=== PATIENT | female | born 2000 | race African-American/Black ===

== ENCOUNTER 2018-08-06 13:07 | Inpatient (IN) ==
[2018-08-06] MEDS ORDERED: Acetaminophen 325 MG Tablet PO PRN (18:14)
[2018-08-06] MEDS: Sod Chloride 0.9% Inj 1,000 ML IV.CONT SCH (22:42)
[2018-08-06] MEDS: Clindamycin 900 mg/NS Premix 900 MG/50 ML PIGGYBACK IV.SIG SCH (22:43)
--- NOTE | 2018-08-06 22:59 | P.HPIM ---
[facility]: No Primary Care Physician Chief Complaint: Sore throat with difficulty swallowing and with drooling History of Present Illness: Ms. Silver is a pleasant 18-year-old female with no significant medical history who presented to the emergency room and [place] complaining of sore throat, dysphasia, and drooling accompanied by fevers for 5 days. [facility] for Z-Derik earlier in the week but stated this did not help her symptoms. As her symptoms progressively worsened and she started having problems swallowing she came to the emergency room. A CT of the neck showed findings consistent with a 1.8 cm left parapharyngeal abscess and she was transferred to [facility] for further evaluation and ENT consultation. At the time of my visit, the patient is feeling better after receiving 2 doses of IV antibiotics and 2 doses of IV steroids. She was sleeping when I entered the room and was easily awakened. She is pleasant and cooperative. She denies any family sick contacts. Tmax 103. . Review of Systems All other systems reviewed negative except as stated in HPI PMFSH - History History Provided By: Patient - Medical History Medical History: Medical History (Last Reviewed 08/07/18 @ 03:13 by JONATHAN Cantu) Patient denies medical problems - Surgical History Surgical History: Surgical History (Last Reviewed 08/07/18 @ 03:13 by JONATHAN Cantu) No history of previous surgery - Family History Family History: Family History (Last Updated 08/07/18 @ 03:09 by JONATHAN Cantu) Mother Prediabetes Mother Asthma - Social History I have reviewed the patient's Social History: Yes - Tobacco History Second Hand Smoke Exposure: No Smoking Status: Never smoker - Alcohol History How Often Do You Have a Drink Containing Alcohol: Never - Substance Use History Substance History: No History of Abuse - Travel History Recent Travel in the [place] Within the Last 8 Weeks: No Recent Travel Out of the Country Within the Last 8 Weeks: No Medications and Allergies Active Medications: Active Medications Acetaminophen (Tylenol) 650 mg PO Q4H PRN PRN Reason: Temp > 100.4 Al Hydroxide/Mg Hydroxide (Milk Of Magnesia Liq) 30 ml PO Q12H PRN PRN Reason: Mild Constipation Dexamethasone Sodium Phosphate (Decadron Inj) 4 mg IV.PUSH Q6HR [facility] Clindamycin/Sodium Chloride (Cleocin 900 Mg/Ns Premix) 900 mg in 50 mls @ 100 mls/hr IV.SIG Q8H [facility] Last Admin: 08/06/18 22:43 Dose: 100 mls/hr Sodium Chloride (Ns Inj) 1,000 mls @ 100 mls/hr IV.CONT .Q10H [facility] Last Admin: 08/06/18 22:42 Dose: 100 mls/hr Ondansetron HCl (Zofran Inj) 4 mg IV.PUSH Q6H PRN PRN Reason: NAUSEA OR VOMITING Allergies Allergy/AdvReac Type Severity Reaction Status Date / Time No Known Allergies Allergy Verified 08/06/18 14:12 Home Medications Medication Instructions Recorded Confirmed Type No Known Home Medications 08/06/18 08/06/18 History Exam Vital signs: Intake & Output 08/06/18 08/06/18 08/07/18 06:59 18:59 06:59 Weight 52.5 kg Other: Weight On Admission 52.5 kg Narrative: GENERAL: This is a well-nourished, well-developed patient, in no apparent distress. SKIN: No rashes, ecchymoses or lesions. Cool and dry. HEAD: Atraumatic. Normocephalic. EYES: No scleral icterus. No injection or drainage. ENT: Airway patent, bilateral tonsillar erythema, mild edema, and exudate. NECK: Trachea midline. No JVD. +mobile & freely moving anterior cervical lymphadenopathy. CARDIOVASCULAR: Regular rate and rhythm without murmurs, gallops, or rubs. RESPIRATORY: Clear to auscultation. Breath sounds equal bilaterally. No wheezes , rales, or rhonchi. GASTROINTESTINAL: Abdomen soft, non-tender, nondistended. No guarding. MUSCULOSKELETAL: Extremities without clubbing, cyanosis, or edema. No calf tenderness. NEUROLOGICAL: Awake and alert. Motor and sensory grossly within normal limits. Normal speech. . Caprini VTE Risk Assessment Caprini VTE Risk Assessment: No/Low Risk (score <= 1) Caprini Risk Assessment Model: Point Value = 1 Point Value = 2 Point Value = 3 Point Value = 5 Age 41-60 Minor surgery BMI > 25 kg/m2 Swollen legs Varicose veins or History of unexplained or recurrent spontaneous Oral contraceptives or hormone replacement Sepsis (< 1 month) Serious lung disease, including pneumonia (< 1 month) Abnormal pulmonary function Acute myocardial infarction Congestive heart failure (< 1 month) History of inflammatory bowel disease Medical patient at bed rest Age 61-74 Arthroscopic surgery Major open surgery (> 45 min) Laparoscopic surgery (> 45 min) Malignancy Confined to bed (> 72 hours) Immobilizing plaster cast Central venous access Age >= 75 History of VTE Family history of VTE Factor V Leiden Prothrombin [id number] Lupus anticoagulant Anticardiolipin antibodies Elevated serum homocysteine Heparin-induced thrombocytopenia Other congenital or acquired thrombophilia Stroke (< 1 month) Elective arthroplasty Hip, pelvis, or leg fracture Acute spinal cord injury (< 1 month) Prophylaxis Regimen: Total Risk Factor Score Risk Level Prophylaxis Regimen 0-1 Low Early ambulation 2 Moderate Order ONE of the following: *Sequential Compression Device (SCD) *Heparin 5000 units SQ BID 3-4 Higher Order ONE of the following medications: *Heparin 5000 units SQ TID *Enoxaparin/Lovenox 40 mg SQ daily (WT < 150 kg, CrCl > 30 mL/min) *Enoxaparin/Lovenox 30 mg SQ daily (WT < 150 kg, CrCl > 10-29 mL/min) *Enoxaparin/Lovenox 30 mg SQ BID (WT < 150 kg, CrCl > 30 mL/min) AND/OR *Sequential Compression Device (SCD) 5 or more Highest Order ONE of the following medications: *Heparin 5000 units SQ TID (Preferred with Epidurals) *Enoxaparin/Lovenox 40 mg SQ daily (WT < 150 kg, CrCl > 30 mL/min) *Enoxaparin/Lovenox 30 mg SQ daily (WT < 150 kg, CrCl > 10-29 mL/min) *Enoxaparin/Lovenox 30 mg SQ BID (WT < 150 kg, CrCl > 30 mL/min) AND *Sequential Compression Device (SCD) Assessment and Plan - Plan Ms. Silver is a pleasant 18-year-old female with no significant medical history who presented to the emergency room and [place] complaining of sore throat, dysphasia, and drooling accompanied by fevers for [address] of the neck showed findings consistent with a 1.8 cm left parapharyngeal abscess and she was transferred to [facility] for further evaluation and ENT consultation. Left parapharyngeal abscess -Antibiotics: Clindamycin 900 mg IV every 8 hours -Anti-inflammatory: Dexamethasone 4 mg IV every 6 hours -Consult ENT -appreciate assistance -Tylenol as needed for fever -Liquid diet Anemia -Hemoglobin 8.5 and hematocrit 29.6 -Iron profile -Repeat in a.m. and follow results DVT prophylaxis -Early ambulation Discussed Condition With: Dr. Clemente, patient, patient's mother, and RN H&P: Quality - VTE Deep Vein Thrombosis/Pulmonary Embolism Present on Admission: No
[2018-08-07 00:19] VITALS: O2SAT 99
[2018-08-07] MEDS: Clindamycin 900 mg/NS Premix 900 MG/50 ML PIGGYBACK IV.SIG SCH ×2 (03:15→09:49)
[2018-08-07 05:34] VITALS: RESP 16
[2018-08-07 09:11] LABS: White Blood Count 11.2 th/mm3 (4.0-11.0)
[2018-08-07 09:12] LABS: Baso % (Auto) 0.2 % (0.0-2.0); Hematocrit 26.3 % (35.0-46.0); Hemoglobin 8.1 gm/dL (11.6-15.3); Lymph # (Auto) 1.6 th/mm3 (1.0-4.8); Lymph % (Auto) 14.4 % (9.0-44.0); Mean Corpuscular HGB Conc 30.7 % (32.0-36.0); Mean Corpuscular Hemoglobin 19.6 pg (27.0-34.0); Mean Corpuscular Volume 63.9 fL (80.0-100.0); Mean Platelet Volume 9.2 fL (7.0-11.0); Mono # (Auto) 0.3 th/mm3 (0.0-0.9); Mono % (Auto) 2.6 % (0.0-8.0); Neut # (Auto) 9.2 th/mm3 (1.8-7.7); Neut % (Auto) 82.8 % (16.0-70.0); Platelet Count 289 th/mm3 (150-450); Red Blood Count 4.12 mil/mm3 (4.00-5.30); Red Cell Distribution Width 21.7 % (11.6-17.2)
[2018-08-07] MEDS: Sod Chloride 0.9% Inj 1,000 ML IV.CONT SCH ×2 (09:16→09:17)
[2018-08-07 09:32] LABS: Anion Gap 10 meq/L (5-15); Aspartate Aminotransferase 14 U/L (16-38); Blood Urea Nitrogen 13 mg/dL (7-18); Calcium 8.7 mg/dL (8.5-10.1); Carbon Dioxide 22.9 meq/L (21.0-32.0); Chloride 108 meq/L (98-107); Glomerular Filtration Rate Greater Than 89 mL/min (>89); Glucose,Random 116 mg/dL (74-106); Potassium 4.1 meq/L (3.5-5.1); Sodium 141 meq/L (136-145)
[2018-08-07 09:33] LABS: Alanine Aminotransferase 12 U/L (9-42)
[2018-08-07 09:35] LABS: % Iron Saturation 4.7 % (20-50); Alkaline Phosphatase 67 U/L (45-117)
--- NOTE | 2018-08-07 10:24 | P.PNIM ---
Subjective Interval history: throat pain has improved, she is able to swallow liquids. Physical Exam Vital signs: Last Vital Signs Temp 98.8 F 08/07/18 08:00 Pulse 65 08/07/18 08:00 Resp 16 08/07/18 08:00 BP 112/73 08/07/18 08:00 Pulse Ox 99 08/07/18 08:00 Intake & Output 08/05/18 08/06/18 08/07/18 08/08/18 06:59 06:59 06:59 06:59 Intake Total 100 / 100 1000 / 1000 Balance 100 / 100 1000 / 1000 Weight 52 kg Narrative: Focused exam: GENERAL: young lady in no acute distress. HEENT:not pale,anicteric,bilateral tonsil swelling 2/4 with erythema no discharge. Results Labs CBC & Chem 7: 08/07/18 07:57 08/07/18 07:57 Assessment and Plan Plan 18 yo F presented with tonsil pain found to have a para pharyngeal abscess. She is on IV Clindamycin and steroids and is responding appropriately. ENT cleared for discharge on oral Clinda and tapering steroid. Progress Note: Quality VTE Deep Vein Thrombosis/Pulmonary Embolism Present on Admission: No
[2018-08-07 11:38] VITALS: BP 108/67; PULSE 75; TEMP 98.7
--- NOTE | 2018-08-07 12:01 | P.CON ---
History of Present Illness Service: ENT Consult date: 08/07/18 Reason for Consult: Peritonsillar abscess Primary Care Provider: No Primary Care Physician Chief Complaint: Sore throat with difficulty swallowing and with drooling History of Present Illness: 18 year old female with several days sore throat. Developed tonsillitis and early abscess, despite Zpack. Treated with Decadron and Clindamycin. Feels much better overnight with edema resolved. Review of Systems Ears, Nose, Mouth, and Throat: Reports difficulty swallowing (resolved), Reports pain with swallowing (resolved), Denies bad breath, Denies change in voice PMFSH - History History Provided By: Patient - Medical History Medical History: Medical History (Last Reviewed 08/07/18 @ 03:13 by JONATHAN Cantu) Patient denies medical problems - Surgical History Surgical History: Surgical History (Last Reviewed 08/07/18 @ 03:13 by JONATHAN Cantu) No history of previous surgery - Family History Family History: Family History (Last Updated 08/07/18 @ 03:09 by JONATHAN Catnu) Mother Prediabetes Mother Asthma - Tobacco History Second Hand Smoke Exposure: No Smoking Status: Never smoker - Alcohol History How Often Do You Have a Drink Containing Alcohol: Never - Substance Use History Substance History: No History of Abuse - Travel History Recent Travel in the [place] Within the Last 8 Weeks: No Recent Travel Out of the Country Within the Last 8 Weeks: No Medications and Allergies Active Medications: Active Medications Acetaminophen (Tylenol) 650 mg PO Q4H PRN PRN Reason: Temp > 100.4 Al Hydroxide/Mg Hydroxide (Milk Of Magnesia Liq) 30 ml PO Q12H PRN PRN Reason: Mild Constipation Dexamethasone Sodium Phosphate (Decadron Inj) 4 mg IV.PUSH Q6HR [facility] Last Admin: 08/07/18 05:58 Dose: 4 mg Clindamycin/Sodium Chloride (Cleocin 900 Mg/Ns Premix) 900 mg in 50 mls @ 100 mls/hr IV.SIG Q8H [facility] Last Infusion: 08/07/18 10:50 Dose: Infused Sodium Chloride (Ns Inj) 1,000 mls @ 100 mls/hr IV.CONT .Q10H [facility] Last Admin: 08/07/18 09:17 Dose: Not Given Ondansetron HCl (Zofran Inj) 4 mg IV.PUSH Q6H PRN PRN Reason: NAUSEA OR VOMITING Allergies Allergy/AdvReac Type Severity Reaction Status Date / Time No Known Allergies Allergy Verified 08/06/18 14:12 Home Medications Medication Instructions Recorded Confirmed Type No Known Home Medications 08/06/18 08/07/18 History Physical Exam Vital signs: Vital Signs 08/06/18 20:50 08/06/18 22:00 08/07/18 00:00 Temperature 98.8 F 97.9 F Pulse Rate 81 79 Respiratory Rate 17 15 17 Blood Pressure 113/70 107/60 Pulse Oximetry 95 99 08/07/18 04:00 08/07/18 08:00 08/07/18 11:36 Temperature 98.8 F 98.7 F Pulse Rate 65 75 Respiratory Rate 16 16 16 Blood Pressure 112/73 108/67 Pulse Oximetry 99 99 Intake & Output 08/06/18 08/07/18 08/07/18 18:59 06:59 18:59 Intake Total 100 / 100 1050 / 1050 Balance 100 / 100 1050 / 1050 Weight 52 kg Intake: IV 100 / 100 1050 / 1050 NS Inj 1,000 ML @ 100 mls/hr IV 1000 / 1000 .CONT .Q10H [facility] Rx#:[id number] Cleocin 900 mg/NS Premix 900 mg 100 / 100 50 / 50 In 50 ml @ 100 mls/hr IV.SIG Q8H [facility] Rx#:[id number] Other: Weight On Admission 52.5 kg - Routine HEENT Exam ENT: Present: mucous membranes moist, oropharynx clear, nares patent, external ear normal. Absent: sinus tenderness - Routine Neck Exam Present: supple, full ROM Results - Labs CBC & Chem 7: 08/07/18 07:57 08/07/18 07:57 Labs: Laboratory Results - last 24 hr 08/07/18 08/07/18 08/07/18 07:57 07:57 07:57 WBC 11.2 H RBC 4.12 Hgb 8.1 L Hct 26.3 L MCV 63.9 L MCH 19.6 L MCHC 30.7 L RDW 21.7 H Plt Count 289 MPV 9.2 Neut % (Auto) 82.8 H Lymph % (Auto) 14.4 Kinney % (Auto) 2.6 Eos % (Auto) 0.0 Baso % (Auto) 0.2 Neut # (Auto) 9.2 H Lymph # (Auto) 1.6 [place]ney # (Auto) 0.3 Eos # (Auto) 0.0 Baso # (Auto) 0.0 WBC Differential . Differential Comment Auto diff final Sodium 141 Potassium 4.1 Chloride 108 H Carbon Dioxide 22.9 Anion Gap 10 BUN 13 Creatinine 0.61 Estimated GFR Greater than 89 Random Glucose 116 H Calcium 8.7 Iron 16 L TIBC 339 % Saturation 4.7 L Total Bilirubin 0.3 AST 14 L ALT 12 Alkaline Phosphatase 67 Total Protein 8.0 D Albumin 3.0 L - Imaging CT report reviewed with [facility]. Assessment and Plan - Assessment (1) Peritonsillar abscess Code(s): J36 - Peritonsillar abscess Status: Acute - Plan Resolved edema and cellulitis post peritonsillar abscess. Can feed and send home. Recommend a short steroid taper and Clindamycin 300 mg TID for 1 week. First time abscess, does not require tonsillectomy. Can follow with PCP closer to home. ENT as needed.
== END 2018-08-07 14:19 | disposition home or self-care (01) ==
LOC: NEPGCP 13:07 → NEDDLT 13:07 → OBSVTOIN 20:55
PROVIDERS: ADMIT Hospitalist; ATTEND Hospitalist